=== PATIENT | male | born 1940 | race Caucasian/White ===

== ENCOUNTER → 2021-01-13 | Outpatient (CLI) | payer OTHER ==
[~2021-01-13] MED LIST: ACCUPRIL 20 MG20 MG PO; DIABETA 5 MG TAB5 MG PO; DIOVAN160 MG PO; GLUCOPHAGE1000 MG PO; IMDUR ER TAB 3030 MG PO; LANTUS SOL100 UNIT/1 SQ; LEVOFLOXACIN250 MG PO; NITROSTAT0.4 MG SL; PROTONIX40 MG PO; SYNTHROID75 MCG PO; ZOCOR20 MG PO
[2021-01-13 12:28] LABS: HEMOGLOBIN 12.5 gm/dl (14.0-17.5); RED BLOOD COUNT 4.38 M/UL (4.20-5.50)
== END ==
LOC: LAB 10:33
PROVIDERS: Internal Medicine
DX: E11.65 Type 2 diabetes mellitus with hyperglycemia (principal)
CPT/HCPCS: 36415; 80048; 80061; 80076; 83036; 84443; 85025

== ENCOUNTER → 2021-04-14 | Outpatient (CLI) | payer OTHER ==
[2021-04-14 11:11] LABS: HEMOGLOBIN 13.3 gm/dl (14.0-17.5); RED BLOOD COUNT 4.55 M/UL (4.20-5.50); WHITE BLOOD COUNT 7.9 K/UL (4.5-11.0)
== END ==
LOC: LAB 10:39
PROVIDERS: Internal Medicine
DX: E11.65 Type 2 diabetes mellitus with hyperglycemia (principal); E03.9 Hypothyroidism, unspecified
CPT/HCPCS: 36415; 80048; 80061; 80076; 83036; 84443; 85025

== ENCOUNTER → 2021-07-20 | Outpatient (CLI) | payer OTHER ==
[2021-07-20 10:39] LABS: HEMOGLOBIN 12.9 gm/dl (14.0-17.5); RED BLOOD COUNT 4.39 M/UL (4.20-5.50); WHITE BLOOD COUNT 6.8 K/UL (4.5-11.0)
== END ==
LOC: LAB 10:00
PROVIDERS: Internal Medicine
DX: E11.65 Type 2 diabetes mellitus with hyperglycemia (principal)
CPT/HCPCS: 80048; 80061; 80076; 83036; 84443; 85025

== ENCOUNTER 2021-08-21 11:16 | Inpatient (IN) | payer OTHER ==
[~2021-08-21] VITALS: Ht 177.8 cm; Wt 96.3 kg
[2021-08-21 11:35] LABS: HEMOGLOBIN 12.7 gm/dl (14.0-17.5); RED BLOOD COUNT 4.38 M/UL (4.20-5.50); WHITE BLOOD COUNT 7.8 K/UL (4.5-11.0)
[2021-08-21 11:56] LABS: BUN/CREATININE RATIO 14 (0-10)
[2021-08-21] MEDS ORDERED: VALSARTAN80 MG PO (16:21)
[2021-08-21] MEDS ORDERED: ZYRTEC10 MG PO (16:23)
[2021-08-21] MEDS ORDERED: TYLENOL 8 HOUR650 MG PO (16:24)
[2021-08-22 04:10] LABS: HEMOGLOBIN 11.3 gm/dl (14.0-17.5); WHITE BLOOD COUNT 6.1 K/UL (4.5-11.0)
[2021-08-22 04:21] LABS: RED BLOOD COUNT 3.92 M/UL (4.20-5.50)
[2021-08-23 04:13] LABS: HEMOGLOBIN 12.2 gm/dl (14.0-17.5); RED BLOOD COUNT 4.26 M/UL (4.20-5.50); WHITE BLOOD COUNT 6.5 K/UL (4.5-11.0)
[2021-08-23] MEDS ORDERED: ATORVASTATIN CA20 MG PO (09:52)
[2021-08-23] MEDS ORDERED: BRILINTA 90 MG90 MG PO (09:52)
== END 2021-08-23 11:50 | disposition home or self-care (01) | DRG 246 ==
LOC: ER1 11:16 → CDU 13:59 → PROG CARE 19:44
PROVIDERS: Family Medicine; Internal Medicine Cardiovascular Disease; Physician Assistant Medical; ADMIT Internal Medicine
PROC: 027034Z Dilation of Coronary Artery, One Artery with Drug-eluting Intraluminal Device, Percutaneous Approach (ICD-10-PCS; principal; 2021-08-22)
PROC: 4A023N7 Measurement of Cardiac Sampling and Pressure, Left Heart, Percutaneous Approach (ICD-10-PCS; 2021-08-22)
PROC: B2111ZZ Fluoroscopy of Multiple Coronary Arteries using Low Osmolar Contrast (ICD-10-PCS; 2021-08-22)
PROC: B24BZZZ Ultrasonography of Heart with Aorta (ICD-10-PCS; 2021-08-23)
DX: T82.855A Stenosis of coronary artery stent, initial encounter (principal); I21.4 Non-ST elevation (NSTEMI) myocardial infarction; I25.110 Atherosclerotic heart disease of native coronary artery with unstable angina pectoris; E87.1 Hypo-osmolality and hyponatremia; Z20.822 Contact with and (suspected) exposure to COVID-19; I12.9 Hypertensive chronic kidney disease with stage 1 through stage 4 chronic kidney disease, or unspecified chronic kidney disease; N18.30 Chronic kidney disease, stage 3 unspecified; E11.22 Type 2 diabetes mellitus with diabetic chronic kidney disease; E78.5 Hyperlipidemia, unspecified; K21.9 Gastro-esophageal reflux disease without esophagitis; E03.9 Hypothyroidism, unspecified; I45.10 Unspecified right bundle-branch block; I08.1 Rheumatic disorders of both mitral and tricuspid valves; Y83.9 Surgical procedure, unspecified as the cause of abnormal reaction of the patient, or of later complication, without mention of misadventure at the time of the procedure; Y92.89 Other specified places as the place of occurrence of the external cause; Z79.4 Long term (current) use of insulin; Z79.890 Hormone replacement therapy; Z88.2 Allergy status to sulfonamides
CPT/HCPCS: ECHO; 36415; 71045; 71250; 80048; 80053; 81001; 82550; 82553; 82962; 83036; 83605; 83690; 83735; 83874; 84484; 85025; 85027; 85347; 85379; 85610; 85730; 87040; 90686; 93005; 93306; 96374; 96375; 96376; 99152; 99153; 99285; C1725; C1769; C1874; C1887; C1894; C9600; G0378; J1644; J3010; J3246; J3475; J7030; Q9965; U0002

== ENCOUNTER 2021-10-28 08:57 | Emergency (ER) | payer OTHER ==
[~2021-10-28 08:57] MED LIST changes: +ATORVASTATIN CA20 MG PO; +BRILINTA 90 MG90 MG PO; +TYLENOL 8 HOUR650 MG PO; +VALSARTAN80 MG PO; +ZYRTEC10 MG PO
[2021-10-28 09:56] LABS: HEMOGLOBIN 12.8 gm/dl (14.0-17.5); RED BLOOD COUNT 4.48 M/UL (4.20-5.50); WHITE BLOOD COUNT 6.1 K/UL (4.5-11.0)
[2021-10-28 10:29] LABS: BUN/CREATININE RATIO 15 (0-10)
[2021-10-28] MEDS ORDERED: NITROSTAT0.4 MG SL (13:39)
== END 2021-10-28 13:57 | disposition home or self-care (01) ==
LOC: ER1 08:57
PROVIDERS: Emergency Medicine
DX: R07.9 Chest pain, unspecified (principal); Z20.822 Contact with and (suspected) exposure to COVID-19; I25.10 Atherosclerotic heart disease of native coronary artery without angina pectoris; E78.5 Hyperlipidemia, unspecified; R42 Dizziness and giddiness; N18.9 Chronic kidney disease, unspecified; I12.9 Hypertensive chronic kidney disease with stage 1 through stage 4 chronic kidney disease, or unspecified chronic kidney disease; E11.22 Type 2 diabetes mellitus with diabetic chronic kidney disease
CPT/HCPCS: 70450; 71045; 80053; 82550; 82553; 83874; 84484; 85025; 93005; 99285; U0002

== ENCOUNTER → 2021-11-22 | Outpatient (CLI) | payer OTHER ==
[2021-11-22 08:55] LABS: HEMOGLOBIN 12.8 gm/dl (14.0-17.5); RED BLOOD COUNT 4.39 M/UL (4.20-5.50); WHITE BLOOD COUNT 8.9 K/UL (4.5-11.0)
[2021-11-23 07:10] LABS: ALBUMIN 4.2 g/dL (3.6-4.6); ALKALINE PHOSPHATASE 114 IU/L (44-121); ALT (SGPT) 12 IU/L (0-44); AST (SGOT) 14 IU/L (0-40); BILIRUBIN, DIRECT 0.16 mg/dL (0.00-0.40); BILIRUBIN, TOTAL 0.5 mg/dL (0.0-1.2); BUN 24 mg/dL (8-27); BUN/CREATININE RATIO 14 (10-24); CARBON DIOXIDE, TOTAL 19 mmol/L (20-29); CHLORIDE, SERUM 104 mmol/L (96-106); CHOLESTEROL, TOTAL 123 mg/dL (100-199); CREATININE, SERUM 1.68 mg/dL (0.76-1.27); EGFR IF AFRICN AM 43 (>59); EGFR IF NONAFRICN AM 37 (>59); ESTIM. AVG GLU (EAG) 166 mg/dL (.); GLUCOSE, SERUM 146 mg/dL (65-99); HDL CHOLESTEROL 35 mg/dL (>39); HEMOGLOBIN A1C 7.4 % (4.8-5.6); LDL CHOLESTEROL CALC 63 mg/dL (0-99); LDL/HDL RATIO 1.8 ratio (0.0-3.6); POTASSIUM, SERUM 4.4 mmol/L (3.5-5.2); PROTEIN, TOTAL 6.4 g/dL (6.0-8.5); SODIUM, SERUM 138 mmol/L (134-144); T. CHOL/HDL RATIO 3.5 ratio (0.0-5.0); TRIGLYCERIDES 144 mg/dL (0-149)
[2021-11-23 09:13] LABS: CREATININE, URINE 129.1 mg/dL (Not Estab.); MICROALB/CREAT RATIO <2 (0-29)
== END ==
LOC: LAB 08:02
PROVIDERS: Internal Medicine
DX: I10 Essential (primary) hypertension (principal)
CPT/HCPCS: 36415; 80048; 80061; 80076; 82043; 82570; 83036; 84443; 85025

== ENCOUNTER 2021-12-10 05:22 | Emergency (ER) | payer OTHER | END 2021-12-10 08:30 | disposition home or self-care (01) | LOC: ER1 05:22 | DX: S51.812A Laceration without foreign body of left forearm, initial encounter (principal); I51.9 Heart disease, unspecified; Z23 Encounter for immunization; W00.0XXA Fall on same level due to ice and snow, initial encounter; Y92.009 Unspecified place in unspecified non-institutional (private) residence as the place of occurrence of the external cause | CPT/HCPCS: 73090; 73130; 90471; 90715; 99283 ==

== ENCOUNTER → 2022-07-13 | Outpatient (CLI) | payer OTHER ==
[2022-07-13 13:02] LABS: RED BLOOD COUNT 4.13 M/UL (4.20-5.50); WHITE BLOOD COUNT 5.8 K/UL (4.5-11.0)
== END ==
LOC: LAB 12:03
PROVIDERS: Internal Medicine
DX: E11.9 Type 2 diabetes mellitus without complications (principal)
CPT/HCPCS: 36415; 80048; 80061; 80076; 83036; 84443; 85025

== ENCOUNTER 2022-07-20 09:10 | Observation (INO) | payer OTHER ==
[~2022-07-20] VITALS: Ht 177.8 cm; Wt 90.7 kg
[2022-07-20 10:14] LABS: HEMOGLOBIN 12.5 gm/dl (14.0-17.5); RED BLOOD COUNT 4.28 M/UL (4.20-5.50); WHITE BLOOD COUNT 6.3 K/UL (4.5-11.0)
[2022-07-20 11:04] LABS: BUN/CREATININE RATIO 15 (0-10)
[2022-07-20] MEDS ORDERED: ATORVASTATIN CA20 MG PO (14:32)
[2022-07-20] MEDS ORDERED: NITROGLYCERIN0.4 MG SL (14:38)
[2022-07-21 01:36] LABS: HEMOGLOBIN 11.8 gm/dl (14.0-17.5); RED BLOOD COUNT 4.11 M/UL (4.20-5.50); WHITE BLOOD COUNT 6.9 K/UL (4.5-11.0)
[2022-07-21] MEDS ORDERED: RANEXA500 MG PO (16:50)
== END 2022-07-21 17:47 | disposition home or self-care (01) ==
LOC: ER1 09:10 → CDU 12:05 → M/S 15:11
PROVIDERS: Emergency Medicine; ADMIT Family Medicine
DX: R07.89 Other chest pain (principal); I25.10 Atherosclerotic heart disease of native coronary artery without angina pectoris; I12.9 Hypertensive chronic kidney disease with stage 1 through stage 4 chronic kidney disease, or unspecified chronic kidney disease; E11.22 Type 2 diabetes mellitus with diabetic chronic kidney disease; N18.4 Chronic kidney disease, stage 4 (severe); E78.5 Hyperlipidemia, unspecified; M19.90 Unspecified osteoarthritis, unspecified site; I45.10 Unspecified right bundle-branch block; K21.9 Gastro-esophageal reflux disease without esophagitis; E03.9 Hypothyroidism, unspecified; Z88.2 Allergy status to sulfonamides; Z95.5 Presence of coronary angioplasty implant and graft; Z79.84 Long term (current) use of oral hypoglycemic drugs; Z79.4 Long term (current) use of insulin; Z79.890 Hormone replacement therapy; Z79.899 Other long term (current) drug therapy
CPT/HCPCS: ECHO; 36415; 71045; 78452; 80048; 80053; 82550; 82553; 82962; 84484; 85025; 85027; 85610; 85730; 93005; 93017; 93306; 99285; A9502; G0378; J2785